=== PATIENT | male | born 1985 | race Caucasian/White ===

== ENCOUNTER 2016-10-06 18:39 | Inpatient (IN) | payer MEDICARE, OTHER ==
--- NOTE | ~2016-10-06 | PA ---
Unit #: [id number] #: [id number] Patient: FABIANA MIRAMONTES [id number] [facility] [address] [place] [address] [id number] MR#: [id number] NAME: FABIANA MIRAMONTES. ROOM: P201 Age: 30 Sex: M Admission Date: 10/06/2016 : 1985 Date of Assessment: 10/07/2016 Attending Physician: Clay Young M.D. Admitting Physician: Clay Young M.D. Primary Care Physician: Primary Care Physician No PSYCHIATRIC ASSESSMENT IDENTYFING INFORMATION The patient is a 30-year-old white male well known to this physician from seemingly enumerable previous admission to this facility. He is readmitted voicing positive suicidal ideation and auditory hallucinations also claiming that he is abusing methamphetamine and benzodiazepines. CHIEF COMPLAINT I have been using man. INFORMANT The patient, reliability is poor. HISTORY OF PRESENT ILLNESS The patient is a 30-year-old white male last discharged from this facility earlier this month. He was scheduled to go and live with his mother but apparently was not allowed to return to that domicile and began using shortly thereafter. He is now residing at a local half-house but continues to report abusive and intervenous methamphetamine as well as illicitly obtained benzodiazepines. When seen today the patient seems to be in moderate physical distress and seems dysphoric. He is continuing to endorse positive suicidal ideation without specific plan. He is not currently reporting any psychotic symptoms and does not appear to be responding to internal stimuli. For more complete history of present illness please refer to previous dictated notes. PAST PSYCHIATRIC HISTORY Reviewed no changes. PAST MEDICAL HISTORY Reviewed no changes. MEDICATIONS None at this time. ALLERGIES None reported. FAMILY HISTORY Reviewed no changes. SOCIAL HISTORY Reviewed no changes. Unit #: [id number] #: [id number] Patient: FABIANA MIRAMONTES MENTAL STATUS EXAMINATION At this time reveals the patient to be a morbidly obese disheveled white male appearing his stated age. He appears to be in moderate physical distress at the time of examination. He is awake, alert, and oriented in all spheres. His mood is dysphoric. His affect is blunted. Speech is generally relevant and coherent. There are no gross deficits in memory or cognition noted. Intelligence is judged to be in the low average range based on fund of knowledge. The patient is cooperative throughout the interview. He is continued to endorse positive suicidal ideation. He denies homicidal ideation. He denies any psychotic symptoms. His judgment and insight appear at baseline. ASSETS AND LIABILITIES ASSETS: To be assessed. LIABILITIES: Profound sociopathy, lack of investment in treatment (1)___ versus homelessness. ADMITTING DIAGNOSES 1. Dysthymic disorder. 2. Methamphetamine use disorder. 3. Sedative hypnotic use disorder. 4. Antisocial personality disorder. 5. Morbid obesity. PSYCHIATRIC PLAN/TREATMENT GOALS The patient remains hospitalized for safety and stabilization. We will watch for any signs of immensely feeling withdrawal and suicide precautions remain in place. Suicide precautions of likewise has been ordered. ESTIMATED LENGTH OF STAY Five to seven days with followup to take place through the auspices of community mental health resources. Dictated by... Clay Young M.D. EVITA/madalyn TD: 10/07/2016 22:58 JOB #: [id number] PSYCHIATRIC ASSESSMENT X Clay Young MD X PSYCHIATRIC ASSESSMENT
--- NOTE | ~2016-10-06 | HP ---
Unit #: [id number] #: [id number] Patient: RALEIGH MIRAMONTES [id number] [place] [address] [id number] MR#: [id number] NAME: RALEIGH MIRAMONTES. ROOM: P201 Age: 30 Sex: M Admission Date: 10/06/2016 : 1985 Attending Physician: Clay Young M.D. Admitting Physician: Clay Young M.D. Primary Care Physician: Primary Care Physician No HISTORY AND PHYSICAL HISTORY OF PRESENT ILLNESS [place] is a 30 year old admitted to [address] [place] [address] reporting auditory hallucinations. He has had numerous admissions to this facility. PAST MEDICAL HISTORY 1. History of malingering. 2. Long history of polysubstance abuse to include opioids, methamphetamine, alcohol, and spice. 3. Hepatitis C. 4. History of withdrawal seizures. PAST SURGICAL HISTORY Oral. ALLERGIES Penicillin, tramadol, Ketoralac. SOCIAL HISTORY Smokes one pack per day. Has a history of heavy alcohol use and poly-illicit substance abuse. FAMILY HISTORY Medically noncontributory. REVIEW OF SYSTEMS He does not answer questions appropriately. There are no reports of nausea, vomiting, or diarrhea. He has had no cough or increased temperature. CURRENT MEDICATIONS 1. Lorazepam 2 mg q. 4 hours p.r.n. 2. Milk of Magnesia p.r.n. 3. Maalox p.r.n. 4. Tylenol p.r.n. PHYSICAL EXAMINATION GENERAL: Alert, obese. No apparent distress. VITAL SIGNS: Blood pressure 120/72, heart rate 80, respirations 16, and temperature 98.6. WEIGHT: 212. HEIGHT: 6 feet 0 inches. SKIN: Warm and dry without rash or lesion. HEENT: Normocephalic. TMs not viewed. Oral and nasal passages clear. Conjunctivae clear. PERRLA. EOMs intact. Unit #: [id number] #: [id number] Patient: RALEIGH MIRAMONTES NECK: Supple without lymphadenopathy or thyromegaly. HEART: Regular rate and rhythm without murmur. LUNGS: Clear. ABDOMEN: Soft, nontender. : Not done. EXTREMITIES: No evidence of cyanosis, clubbing or edema. Moves all without focal deficit. NEUROLOGICAL: Grossly within normal limits. Cranial Nerves: II: Visual mascorro are intact. III, IV AND : Extraocular movements are intact. Pupils are equal, round and reactive to light. V: Facial sensation is grossly normal. VII: Facial movements and expression are normal. VIII: Auditory acuity grossly intact. IX, X: Uvula is midline. Phonation is normal. XI: Patient shrugs shoulders and turns head normally. XII: Tongue protrudes in the midline. Sensory and Motor Function: Sensory and motor sensation is grossly normal. Motor: moves all extremities well. Coordination: Gait is normal. Deep Tendon Reflexes: Intact. IMPRESSION Psychiatric admission. RECOMMENDATIONS PSYCHIATRIC: Per psychiatrist. MEDICAL: I see no contraindication to participate in this facility's activities. MEDICAL PROGNOSIS Good. MEDICAL CONDITION Stable. Dictated by... Mony Leslie P.A.-C. for Elizabeth Mendoza/juan TD: 10/07/2016 11:05 JOB #: [id number] HISTORY AND PHYSICAL X Mony Leslie X HISTORY AND PHYSICAL
--- NOTE | ~2016-10-06 | PN ---
Unit #: [id number] #: [id number] Patient: FABIANA MIRAMONTES [id number] [facility] [address] [place] [address] [id number] I MR#: [id number] NAME: FABIANA MIRAMONTES ROOM: P201 Age: 30 Sex: M Admission Date: 10/06/2016 : 1985 Attending Physician: Clay Young M.D. Admitting Physician: Clay Young M.D. Primary Care Physician: Primary Care Physician La DOMINIQUE PROGRESS NOTES DATE 10/08/2016 DISCUSSION The patient is abed snoring loudly today. Multiple attempts to arouse him are unsuccessful. His detox continues uneventfully. Dictated by... Elizabeth Macdonald TD: 10/08/2016 14:36 JOB #: [id number] TRIP PROGRESS NOTES X Clay Young MD X PROGRESS NOTE
--- NOTE | ~2016-10-06 | DS ---
Unit #: [id number] #: [id number] Patient: FABIANA MIRAMONTES [id number] [facility] [address] [place] [address] [id number] I MR#: [id number] NAME: FABIANA MIRAMONTES. ROOM: P201 Age: 30 Sex: M Admission Date: 10/06/2016 : 1985 Discharge Date: 10/09/2016 Attending Physician: Clay Young M.D. Primary Care Physician: Primary Care Physician No DISCHARGE SUMMARY REASON FOR ADMISSION The patient is a 30-year-old white male, well known to this physician from multiple previous admissions to this facility. He is admitted complaining of suicidal ideation once again, and abuse of methamphetamine and heroin. HOSPITAL COURSE The patient was admitted to the [facility] unit and placed on routine detoxification protocol for opioids. He exhibited little in the way of signs or symptoms of opioid withdrawal leading there to be some question as to the veracity of his claims of opioid abuse. Whatever the case, the patient remained seclusive to room with virtually no participation whatsoever within the therapeutic milieu as has been his pattern throughout most, if not all, of his hospitalizations at this facility. By 10/09/2016, he requested discharge and it was so ordered. FINAL DIAGNOSES Dysthymic disorder; alcohol use disorder by history; cocaine use disorder by history; sedative hypnotic use by history; opioid use disorder; methamphetamine use disorder; antisocial personality disorder; morbid obesity. DISPOSITION ON DISCHARGE No psychotropic medications are prescribed at the time of discharge given the patient's complete inability to maintain sobriety for any significant period of time. FOLLOWUP The patient will follow up through the auspices of [facility] mental health chemical dependency treatment resources. PROGNOSIS His prognosis is considered guarded. Dictated by... Clay Young M.D. CB/valariel TD: 10/10/2016 01:37 JOB #: [id number] Unit #: [id number] #: [id number] Patient: FABIANA MIRAMONTES DISCHARGE SUMMARY X Clay Young MD X DISCHARGE SUMMARY
[~2016-10-06 18:39] MED LIST: ADDERALL XR 3030 M2 PO; AMBIEN PO; AMOXICILLIN PO; AMOXICILLIN500 M1 PO; AUGMENTIN PO; BACTRIM DS TABL1 TA1 PO; BACTRIM DS TABL1 TAB PO; DARVOCET-N 1001 TAB PO; DEPAKOTE; DEPAKOTE PO; DICLOFENAC PO; DOLOBID500 MG PO; GENOPTIC5 ML OP; IBUPROFEN PO; KEFLEX PO; KEFLEX500 MG PO; KETOPROFEN PO; KLONOPIN1 MG PO; NAPROSYN500 MG PO; NEURONTIN; NEURONTIN PO; NO MEDICATIONS; PENICILLIN; PENICILLIN PO; PERCOCET; SUBOXONE 8 MG-1 EACH SL; TYLENOL #3 PO; ULTRAM PO; VIVANSE; VOLTAREN75 MG PO; WELLBUTRIN PO; WELLBUTRIN SR PO; ZYVOX600 MG PO
== END 2016-10-09 15:00 | DRG 881 ==
LOC: P2S 18:39
DX: F34.1 Dysthymic disorder (principal); E66.01 Morbid (severe) obesity due to excess calories; F10.10 Alcohol abuse, uncomplicated; F11.10 Opioid abuse, uncomplicated; F15.10 Other stimulant abuse, uncomplicated; F60.2 Antisocial personality disorder; F17.210 Nicotine dependence, cigarettes, uncomplicated; Z88.0 Allergy status to penicillin

== ENCOUNTER 2016-10-28 15:00 | Inpatient (IN) | payer MEDICARE, OTHER ==
--- NOTE | ~2016-10-28 | DS ---
Unit #: [id number] #: [id number] Patient: FABIANA MIRAMONTES [id number] [place] [address] [id number] I MR#: [id number] NAME: FABIANA MIRAMONTES. ROOM: [facility] Age: 31 Sex: M Admission Date: 10/28/2016 : 1985 Discharge Date: 10/30/2016 Attending Physician: Clay Young M.D. Primary Care Physician: Primary Care Physician No DISCHARGE SUMMARY REASON FOR ADMISSION The patient is a 31-year-old white male, admitted after he had presented to this facility claiming to be suicidal. HOSPITAL COURSE The patient was admitted to the [facility] unit and placed on suicide precautions. He was placed on routine detoxification protocol for alcohol and was restarted on previously prescribed Neurontin, Celexa, and Risperdal at previously prescribed doses per his report. On the morning of 10/30/2016, the patient requested initiation of a stimulant complaining that his medications were making him "too tired." When this physician recommended that reduction in his Neurontin dose would be a more sensible adjustment to his complaints of sedation or switch to all h.s. dosing of Risperdal, the patient came indignant and demanded discharge. It was explained to the patient that given his substance abuse history that the prescription of psychostimulant medication would be patently absurd. As per his request, discharge was ordered. FINAL DIAGNOSES Dysthymic disorder, antisocial personality disorder, opioid use disorder, alcohol use disorder, methamphetamine use disorder, morbid obesity. DISPOSITION ON DISCHARGE The patient is discharged on no psychotropic or other medications. A discussion of the risks of untreated alcohol withdrawal are discussed at length with the patient including the risk of seizures, DTs, and . The patient is discharged against medical advice. Dictated by... Clay Young M.D. CB/ivory TD: 10/31/2016 01:41 JOB #: [id number] Unit #: [id number] #: [id number] Patient: FABIANA MIRAMONTES DISCHARGE SUMMARY Page 1 of 1 X Clay Young MD X DISCHARGE SUMMARY
--- NOTE | ~2016-10-28 | PA ---
Unit #: [id number] #: [id number] Patient: FABIANA MIRAMONTES [id number] [facility] [address] [place] [address] [id number] I MR#: [id number] NAME: FABIANA MIRAMONTES. ROOM: P252 Age: 31 Sex: M Admission Date: 10/28/2016 : 1985 Date of Assessment: 10/29/2016 Attending Physician: Clay Young M.D. Admitting Physician: Clay Young M.D. Primary Care Physician: Primary Care Physician No PSYCHIATRIC ASSESSMENT IDENTIFYING INFORMATION The patient is a 31-year-old single white male well known to this physician from multiple previous admissions to this facility. He is readmitted after he had presented to this facility complaining of suicidal ideation. CHIEF COMPLAINT None given. INFORMANT Patient, reliability fair. HISTORY OF PRESENT ILLNESS The patient is a 31-year-old single white male brought to this facility after he had been intoxicated at the [facility] and had urinated in their lobby. The patient reports that he was having suicidal ideation. He had claimed that he had not used alcohol in months, a statement which is somewhat laughable given the patient's multiple previous admissions to this facility under similar circumstances. When seen today, the patient is reporting positive suicidal ideation. He states that he had been doing reasonably well on his prescribed medications, but after leaving this facility apparently went straight to the [facility] and was there for several days prior to being discharged on 10/23/2016. The patient claims that he is living in a sober living facility but has also claimed to be living with his mother. His stories as are generally the case, are conflicting and inconsistent. The patient states that while at the [facility], he was restarted on Neurontin and started on Celexa and Risperdal. He reports that these medications were effective for him. He denies abuse of psychoactive substances apart from alcohol. For more complete history of present illness, please refer to previously dictated notes. PAST PSYCHIATRIC HISTORY Reviewed, no changes. PAST MEDICAL HISTORY Reviewed, no changes. MEDICATIONS Celexa, Risperdal, and Neurontin. ALLERGIES Ketorolac, Tramadol, Ultram. Unit #: [id number] #: [id number] Patient: FABIANA MIRAMONTES FAMILY HISTORY Reviewed, no changes. SOCIAL HISTORY Reviewed, no changes. MENTAL STATUS EXAMINATION Examination at this time reveals the patient to be a disheveled obese white male appearing older than her stated age. He is in no apparent physical distress at the time of the examination. He is awake, alert, and oriented in all spheres. His mood is calm, his affect blunted. Speech is generally well-coherent. There are no gross deficits in memory or cognition noted. Intelligence is judged to be in the low average range based on fund of knowledge. The patient is generally cooperative throughout the interview. He is currently endorsing positive suicidal ideation. He denies homicidal ideation. He denies any psychotic symptoms. His judgment and insight appear to be somewhat impaired. ASSETS AND LIABILITIES The patient's assets are to be assessed. Liabilities: Lack of resources. DIAGNOSTIC IMPRESSION 1. Alcohol use disorder. 2. Opioid use disorder by history. 3. Methamphetamine use disorder by history. 4. Dysthymic disorder. 5. Antisocial personality disorder. 6. Morbid obesity. 7. Hepatitis C. TREATMENT PLAN The patient remains hospitalized for safety and stabilization. Routine detoxification for tobacco and alcohol has been initiated, and suicide precautions are in place. The patient will be restarted on Neurontin, Celexa, and Risperdal. At this point, given his claims that he has done all these medications, we will seek old records from the [facility] to ascertain his response to these medications there. ESTIMATED LENGTH OF STAY 3 to 5 days. The followup will take place through the auspices of community mental health resources. Dictated by... Clay Young M.D. EVITA/juan TD: 10/29/2016 13:17 JOB #: [id number] Unit #: [id number] #: [id number] Patient: FABIANA MIRAMONTES PSYCHIATRIC ASSESSMENT Page 1 of 1 X Clay Young MD PSYCHIATRIC ASSESSMENT
--- NOTE | ~2016-10-28 | HP ---
Unit #: [id number] #: [id number] Patient: RALEIGH MIRAMONTES [id number] [facility] [address] [place] [address] [id number] I MR#: [id number] NAME: RALEIGH MIRAMONTES ROOM: P252 Age: 31 Sex: M Admission Date: 10/28/2016 : 1985 Attending Physician: Clay Young M.D. Admitting Physician: Clay Young M.D. Primary Care Physician: Primary Care Physician No HISTORY AND PHYSICAL HISTORY OF PRESENT ILLNESS [place] is a 31 year old admitted to [facility] reporting auditory hallucinations. He was discharged from this facility after treatment for the same. The patient was seen and H and P dated 10/07/2016 was reviewed. This is current. No changes. Please see H and P dated 10/07/2016. Dictated by... Mony Leslie P.A.-C. for Elizabeth Mendoza/madalyn TD: 10/28/2016 23:18 JOB #: [id number] HISTORY AND PHYSICAL Page 1 of 1 X Mony Leslie HISTORY AND PHYSICAL
[2016-10-29 09:36] LABS: BASOPHIL# 0.1 X10e3 (0-0.3); BASOPHIL% 1.1 % (0-2.5); EOSINOPHIL# 0.3 X10e3 (0-0.7); EOSINOPHIL% 3.9 % (0.0-7.0); HEMATOCRIT 45.4 % (38.0-50.0); LYMPHOCYTE# 2.4 X10e3 (1.0-3.5); MEAN CELL VOLUME 89.3 FL (83-96); MEAN CORPUSCULAR HEMOGLOBIN 29.6 PG (28-34); MEAN CORPUSCULAR HGB CONC 33.1 g/dL (30-36); MEAN PLATELET VOLUME 10.9 FL (6.5-11.5); MONOCYTE# 0.9 X10e3 (0-1.0); MONOCYTE% 11.2 % (3.0-12.0); NEUTROPHIL# 4.6 X10e3 (1.5-7.1); NEUTROPHIL% 54.8 % (40-75); PLATELET COUNT 123 X10e3 (140-420); RED BLOOD COUNT 5.08 X10e (3.90-5.60); RED CELL DISTRIBUTION WIDTH 14.3 % (11.0-15.5); WHITE BLOOD COUNT 8.4 X10e3 (4.0-10.5)
[2016-10-29 09:37] LABS: DIFF IND NO
[2016-10-29 09:53] LABS: THYROID STIMULATING HORMONE 0.55 uIU/ml (0.34-5.60)
[2016-10-29 10:00] LABS: FREE THYROXIN (T4) 0.8 ng/dL (0.58-1.64)
[2016-10-29 10:06] LABS: ALBUMIN SERUM 3.5 g/dL (3.5-5.0); ALKALINE PHOSPHATASE 68 U/L (32-92); ALT (SGPT) 90 U/L (10-40); AST (SGOT) 48 U/L (10-42); BILIRUBIN,TOTAL 0.7 mg/dL (0.2-2.0); BLOOD UREA NITROGEN 11 mg/dL (9-23); BUN/CREATININE RATIO 13.75; CALCIUM SERUM 8.8 mg/dL (8.4-10.2); CARBON DIOXIDE 27 mmol/L (22-31); CHLORIDE 105 mmol/L (100-111); CREATININE SERUM 0.8 mg/dL (0.6-1.4); GLOM FILT RATE Estimated ABOVE60 mL/min (>60); GLUCOSE FASTING 98 mg/dL (70-110); POTASSIUM 4.3 mmol/L (3.5-5.1); PROTEIN TOTAL SERUM 6.4 g/dL (6.0-8.3); SODIUM 137 mmol/L (135-145)
[2016-10-30 09:59] LABS: URINE APPEARANCE CLOUDY; URINE BILIRUBIN NEG (NEG); URINE BLOOD NEG (NEG); URINE COLOR DK YELLOW; URINE GLUCOSE NEG (NEG); URINE KETONE NEG (NEG); URINE LEUKOCYTE ESTERASE NEG (NEG); URINE NITRATE NEG (NEG); URINE PH 8.5 (5-8); URINE PROTEIN NEG (NEG); URINE SPECIFIC GRAVITY 1.023 (1.003-1.035)
[2016-10-30 10:50] LABS: AMPHETAMINE NEG (NEG); BARBITURATES NEG (NEG); BENZODIAZEPINES NEG (NEG); COCAINE NEG (NEG); MARIJUANA NEG (NEG); OPIATES NEG (NEG); TRICYCLIC ANTIDEPRESSANTS NEG (NEG); U METHADONE NEG (NEG)
== END 2016-10-30 14:45 | disposition left against medical advice (07) | DRG 894 ==
LOC: P2L 15:00
PROVIDERS: Specialist
PROC: HZ2ZZZZ Detoxification Services for Substance Abuse Treatment (ICD-10-PCS; principal; 2016-10-28)
DX: F10.20 Alcohol dependence, uncomplicated (principal); E66.01 Morbid (severe) obesity due to excess calories; F11.90 Opioid use, unspecified, uncomplicated; F15.90 Other stimulant use, unspecified, uncomplicated; F34.1 Dysthymic disorder; F60.2 Antisocial personality disorder; B19.20 Unspecified viral hepatitis C without hepatic coma; Z68.32 Body mass index [BMI] 32.0-32.9, adult; Y90.4 Blood alcohol level of 80-99 mg/100 ml
CPT/HCPCS: 80053; 80307; 81003; 84439; 84443; 85025; 86592

== ENCOUNTER 2016-11-06 10:27 | Inpatient (IN) | payer MEDICARE, OTHER ==
--- NOTE | ~2016-11-06 | PN ---
Unit #: [id number] #: [id number] Patient: FABIANA MIRAMONTES [id number] [facility] [address] [place] [address] [id number] I MR#: [id number] NAME: FABIANA MIRAMONTES. ROOM: 16 Age: 31 Sex: M Admission Date: 11/06/2016 : 1985 Attending Physician: Clay Young M.D. Admitting Physician: Clay Young M.D. Primary Care Physician: Primary Care Physician La DOMINIQUE PROGRESS NOTES DATE 11/08/2016 DISCUSSION The patient has been transferred to the [address] [place] [address] and is now on room lockout precautions after he had claimed to be having increasing of command auditory hallucinations telling him to harm himself. Upon learning of his room lockout, the patient is demanding discharge from the hospital stating to this physician, "I ain't going to kill myself" and referring to this physician by a number of obscene epithets. The patient complains that the Haldol is causing him to "lockup" though he exhibits absolutely no signs or symptoms of extrapyramidal symptoms. More to the point, he exhibits no response to any internal stimuli leading this physician as well as several members of the staff to question the veracity of his claims of auditory hallucinations. Whatever the case, given the threats made earlier today, he will remain on suicide precautions and room lockout for at least another 24 hours. I have discontinued Haldol given the patient's complaints of extrapyramidal symptoms and will restart Risperdal which he had taken previously. Dictated by... Clay Young M.D. CB/beverly TD: 11/08/2016 16:03 JOB #: [id number] TRIP PROGRESS NOTES Page 1 of 1 X Clay Young MD X PROGRESS NOTE
--- NOTE | ~2016-11-06 | PN ---
Unit #: [id number] #: [id number] Patient: FABIANA MIRAMONTES [id number] [facility] [address] [place] [address] [id number] I MR#: [id number] NAME: FABIANA MIRAMONTES ROOM: 71 Age: 31 Sex: M Admission Date: 11/06/2016 : 1985 Attending Physician: Clay Young M.D. Admitting Physician: Clay Young M.D. Primary Care Physician: Primary Care Physician La DOMINIQUE PROGRESS NOTES DATE 11/07/2016 DISCUSSION Not surprisingly the patient is noted to be abed snoring loudly today and has not been attending groups or any therapeutic activities on the unit. This is typical behavior from the patient from multiple previous hospitalizations. I have gently but firmly confronted the patient regarding my expectation that he increase his participation within the therapeutic milieu. He continues to endorse positive suicidal ideation. Dictated by... Clya Young M.D. CB/beverly TD: 11/07/2016 15:36 JOB #: [id number] TRIP PROGRESS NOTES Page 1 of 1 X Clay Young MD PROGRESS NOTE
--- NOTE | ~2016-11-06 | DS ---
Unit #: [id number] #: [id number] Patient: FABIANA MIRAMONTES [id number] [facility] [address] [place] [address] [id number] MR#: [id number] NAME: FABIANA MIRAMONTES. ROOM: [facility] Age: 31 Sex: M Admission Date: 11/06/2016 : 1985 Discharge Date: 11/09/2016 Attending Physician: Clay Young M.D. DISCHARGE SUMMARY REASON FOR ADMISSION The patient is a 33-year-old white male, admitted yet again and was claiming to be experiencing auditory hallucinations and suicidal thinking. HOSPITAL COURSE [facility] No detoxification protocol was ordered for the patient as he had only been out of the hospital for couple of days. The patient was angry regarding this. He persisted in his claims of auditory hallucinations and on 11/06/2016, he was begun on Haldol 5 mg t.i.d. daily. On 11/08/2016, the patient became angry with staff and was transferred to the [address] [place] [address] unit and placed on room lockout precautions. He demanded discharge on that date, but having earlier in the day claimed to be having suicidal ideation. Discharge was not ordered on that date, the patient claims that the Haldol was closing and "locked up." This medication was therefore discontinued and the patient restarted on Risperdal 2 mg t.i.d. On 11/09/2016, the patient denied suicidal ideation and requested discharge and it was so ordered. FINAL DIAGNOSES Dysthymic disorder, alcohol use disorder, antisocial personality disorder, morbid obesity. DISPOSITION ON DISCHARGE The patient is discharged on the following medications: Risperdal 2 mg t.i.d. for psychosis. DISCHARGE INSTRUCTIONS No dietary or physical restrictions were placed upon the patient at time of discharge. FOLLOWUP Followup will take place through the auspices of community mental health and chemical dependency resources. PROGNOSIS The patient's prognosis range guarded. Dictated by... Clay Young M.D. CB/valariel Unit #: [id number] #: [id number] Patient: FABIANA MIRAMONTES TD: 11/09/2016 16:45 JOB #: [id number] DISCHARGE SUMMARY Page 1 of 1 X Clay Young MD DISCHARGE SUMMARY
--- NOTE | ~2016-11-06 | HP ---
Unit #: [id number] #: [id number] Patient: RALEIGH MIRAMONTES [id number] [facility] [address] [place] [address] [id number] I MR#: [id number] NAME: RALEIGH MIRAMONTES ROOM: P171 Age: 31 Sex: M Admission Date: 11/06/2016 : 1985 Attending Physician: Clay Young M.D. Admitting Physician: Clay Young M.D. Primary Care Physician: Primary Care Physician No HISTORY AND PHYSICAL HISTORY OF PRESENT ILLNESS [place] is a 31 year old, admitted to [facility] after reporting auditory hallucinations. He was just discharged from this facility. The patient was seen and history and physical, dated 10/07/2016 was reviewed. It is current. No changes. Please see history and physical, dated 10/07/2016. Dictated by... Mony Leslie P.A.-C. for Elizabeth Mendoza/yamini TD: 11/07/2016 07:55 JOB #: [id number] HISTORY AND PHYSICAL Page 1 of 1 X Mony Leslie HISTORY AND PHYSICAL
--- NOTE | ~2016-11-06 | PA ---
Unit #: [id number] #: [id number] Patient: FABIANA MIRAMONTES [id number] [place] [address] [id number] MR#: [id number] NAME: FABIANA MIRAMONTES. ROOM: [facility] Age: 31 Sex: M Admission Date: 11/06/2016 : 1985 Date of Assessment: 11/06/2016 Attending Physician: Clay Young M.D. Admitting Physician: Clay Young M.D. Primary Care Physician: Primary Care Physician No PSYCHIATRIC ASSESSMENT IDENTIFYING INFORMATION The patient is a 31-year-old white male admitted after he had presented to [facility] claiming to be experiencing auditory hallucinations. INFORMANT(S) Patient. RELIABILITY Poor. CHIEF COMPLAINT None given. HISTORY OF PRESENT ILLNESS The patient is a 31-year-old white male well-known to this facility from multiple previous admissions the last of which ended only about a week ago. The patient is readmitted after he had presented to [facility] claiming to be hearing voices and conversing with Deandre Saeed. The patient denies having used substances since his discharge from the hospital but his drug screen is in fact positive for amphetamines. When seen today, the patient reports that he continues to experience auditory and visual hallucinations as well as feelings of derealization and he is reporting positive suicidal ideation. For a more complete history of present illness, please refer to previous dictated notes. PAST PSYCHIATRIC HISTORY Reviewed, no changes. FAMILY HISTORY Reviewed, no changes. SOCIAL HISTORY Reviewed, no changes. MEDICAL HISTORY Reviewed, no changes. MEDICATION HISTORY 1. Celexa. 2. Risperdal. 3. Neurontin. Unit #: [id number] #: [id number] Patient: FABIANA MIRAMONTES The patient is inconsistently compliant with all these medications. ALLERGIES Tramadol, ketorolac. MENTAL STATUS EXAM At this time, reveals the patient to be a morbidly obese disheveled white male appearing his stated age. He is slightly groggy but arouses without difficulty. He is oriented in all spheres. His mood is mildly dysphoric. His affect constricted. Speech is generally relevant and coherent. There are no gross deficits in memory or cognition noted. Intelligence is judged to be in the low average range based on fund of knowledge. The patient is generally cooperative during interview. He continues to endorse positive suicidal ideation. He denies homicidal ideation. He reports positive auditory hallucinations and symptoms of derealization. He also claims to be experiencing positive visual hallucinations. His judgement and insight appear to be at baseline. No signs of substance withdrawal are noted. ASSETS AND LIABILITIES Patient's assets to be assessed. Liabilities, profound sociopathy, ongoing substance use, lack of investment in treatment. ADMITTING DIAGNOSES 1. Dysthymic disorder. 2. Methamphetamine use disorder. 3. Alcohol use disorder. 4. Antisocial personality disorder. 5. Hepatitis C by history. PSYCHIATRIC PLAN/TREATMENT GOALS The patient remains hospitalized for safety and stabilization. I will begin the patient on Haldol 5 mg t.i.d. given his complaints of visual hallucinations but will discontinue Celexa, Risperdal and Neurontin given the patient's inability to maintain sobriety for any significant period of time. DISCHARGE PLANNING Follow up to take place through the auspices of community mental health resources. ESTIMATED LENGTH OF STAY Three to five days Dictated by... Clay Young M.D. EVITA/beverly TD: 11/06/2016 15:56 JOB #: [id number] Unit #: [id number] #: [id number] Patient: FABIANA MIRAMONTES PSYCHIATRIC ASSESSMENT Page 1 of 1 X Clay Young MD PSYCHIATRIC ASSESSMENT
[2016-11-07 10:03] LABS: ALBUMIN SERUM 3.9 g/dL (3.5-5.0); BILIRUBIN,TOTAL 0.6 mg/dL (0.2-2.0); BUN/CREATININE RATIO 24.28; CALCIUM SERUM 8.9 mg/dL (8.4-10.2); CREATININE SERUM 0.7 mg/dL (0.6-1.4); GLOM FILT RATE Estimated 126.7 mL/min (>60); POTASSIUM 4.3 mmol/L (3.5-5.1); PROTEIN TOTAL SERUM 6.8 g/dL (6.0-8.3)
[2016-11-07 10:07] LABS: THYROID STIMULATING HORMONE 0.87 uIU/ml (0.34-5.60)
[2016-11-07 10:14] LABS: FREE THYROXIN (T4) 0.92 ng/dL (0.58-1.64)
[2016-11-07 10:31] LABS: BASOPHIL# 0.1 X10e3 (0-0.3); BASOPHIL% 1.2 % (0-2.5); EOSINOPHIL# 0.3 X10e3 (0-0.7); EOSINOPHIL% 3.6 % (0.0-7.0); HEMATOCRIT 48.3 % (38.0-50.0); HEMOGLOBIN 16.1 gm/dL (13.0-16.0); LYMPHOCYTE# 2.8 X10e3 (1.0-3.5); LYMPHOCYTE% 30.4 % (17.0-45.0); MEAN CELL VOLUME 89.1 FL (83-96); MEAN CORPUSCULAR HEMOGLOBIN 29.7 PG (28-34); MEAN CORPUSCULAR HGB CONC 33.3 g/dL (30-36); MEAN PLATELET VOLUME 11.3 FL (6.5-11.5); MONOCYTE# 1.1 X10e3 (0-1.0); MONOCYTE% 11.5 % (3.0-12.0); NEUTROPHIL# 4.9 X10e3 (1.5-7.1); NEUTROPHIL% 53.3 % (40-75); RED BLOOD COUNT 5.42 X10e (3.90-5.60); RED CELL DISTRIBUTION WIDTH 14.4 % (11.0-15.5); WHITE BLOOD COUNT 9.3 X10e3 (4.0-10.5)
[2016-11-07 11:37] LABS: DIFF IND YES; PLATELET COUNT 145 X10e3 (140-420)
[2016-11-07 11:37] LABS: URINE APPEARANCE CLOUDY; URINE BILIRUBIN NEG (NEG); URINE BLOOD NEG (NEG); URINE COLOR YELLOW; URINE GLUCOSE NORM (NORM); URINE KETONE 2+ (NEG); URINE LEUKOCYTE ESTERASE NEG (NEG); URINE NITRATE NEG (NEG); URINE PH 6.5 (5-8); URINE PROTEIN NEG (NEG); URINE UROBILINOGEN NORM (NORM)
[2016-11-07 11:41] LABS: PLATELET ESTIMATE NORMAL (NORMAL); RBC NORMAL YES
== END 2016-11-09 13:42 | disposition home or self-care (01) | DRG 881 ==
LOC: P1E 10:27 → POF 11:44 → P1E 11:47 → P1S 11-08 11:41
PROVIDERS: Specialist
DX: F34.1 Dysthymic disorder (principal); F15.20 Other stimulant dependence, uncomplicated; R45.851 Suicidal ideations; F10.20 Alcohol dependence, uncomplicated; F60.2 Antisocial personality disorder; B19.20 Unspecified viral hepatitis C without hepatic coma
CPT/HCPCS: 80053; 80307; 81003; 84439; 84443; 85025; 99285; G0480

== ENCOUNTER 2016-12-08 02:36 | Inpatient (IN) | payer MEDICARE, OTHER ==
--- NOTE | ~2016-12-08 | PA ---
Unit #: [id number] #: [id number] Patient: FABIANA MIRAMONTES [id number] [facility] [address] [place] [address] [id number] MR#: [id number] NAME: FABIANA MIRAMONTES. ROOM: P202 Age: 31 Sex: M Admission Date: 12/08/2016 : 1985 Date of Assessment: 12/08/2016 Attending Physician: Clay Young M.D. Admitting Physician: Clay Young M.D. Primary Care Physician: Primary Care Physician No PSYCHIATRIC ASSESSMENT IDENTIFYING INFORMATION The patient is a 31-year-old white male admitted in transfer from [facility] where he presented voicing suicidal ideation and increased alcohol use. INFORMANT(S) Chart, patient cannot be aroused for interview. CHIEF COMPLAINT None given. HISTORY OF PRESENT ILLNESS The patient is a 31-year-old white male well-known to this facility from multiple previous admissions to the facility the last of which ended on 11/09/2016. The patient had presented to [facility] stating that he had been expelled from the [facility] in which he had been residing secondary to ongoing abuse of alcohol. The patient reporting that he has been drinking about a fifth of hard liquor on a daily basis. The patient claims he has been hearing voices telling him to "lay on the train tracks." For more complete history of present illness, please refer to previous dictated notes. PAST PSYCHIATRIC HISTORY Reviewed, no changes. PAST MEDICAL HISTORY Reviewed no changes. MEDICATIONS None at this time. ALLERGIES Tramadol, ketorolac FAMILY HISTORY Reviewed, no changes. SOCIAL HISTORY Reviewed, no changes. MENTAL STATUS EXAM At this time, reveals the patient to be an obese disheveled soundly Unit #: [id number] #: [id number] Patient: FABIANA MIRAMONTES sleeping white male who in spite of multiple efforts to do so will not arouse for interview. ASSETS AND LIABILITIES ASSETS: To be assessed. LIABILITIES: Ongoing substance use, lack of resources. DIAGNOSTIC IMPRESSION 1. Dysthymic disorder. 2. Alcohol use disorder. 3. Antisocial personality disorder. PSYCHIATRIC PLAN/TREATMENT GOALS The patient remains hospitalized for safety and stabilization. A routine detoxification protocol for alcohol has been initiated. Suicidal precautions have been placed. ESTIMATED LENGTH OF STAY Three to five days Dictated by... Elizabeth Macdonald TD: 12/09/2016 00:03 JOB #: [id number] PSYCHIATRIC ASSESSMENT Page 1 of 1 X Clay Young MD X PSYCHIATRIC ASSESSMENT
--- NOTE | ~2016-12-08 | HP ---
Unit #: [id number] #: [id number] Patient: RALEIGH MIRAMONTES [id number] [facility] [address] [place] [address] [id number] I MR#: [id number] NAME: RALEIGH MIRAMONTES. ROOM: P202 Age: 31 Sex: M Admission Date: 12/08/2016 : 1985 Attending Physician: Clay Young M.D. Admitting Physician: Clay Young M.D. Primary Care Physician: Primary Care Physician No HISTORY AND PHYSICAL HISTORY OF PRESENT ILLNESS Raleigh is a 31 year old admitted to [address] [place] [address]. He has had numerous admissions to this facility. He was recently discharged from this facility. PAST MEDICAL HISTORY 1. History of malingering. 2. Long history of polysubstance abuse to include opioids, methamphetamine, alcohol and spice. 3. Hepatitis C. 4. History of withdrawal seizures. PAST SURGICAL HISTORY Oral. ALLERGIES Penicillin, tramadol, ketorolac. SOCIAL HISTORY Smokes one pack per day, has a history of alcohol use. He continues to drink up to a fifth a day and has a history of poly illicit substance abuse. FAMILY HISTORY Medically noncontributory. REVIEW OF SYSTEMS CONSTITUTIONAL: No fever or chills. HEENT: Denies any sore throat, ear pain or runny nose. CARDIOVASCULAR: Denies chest pain, irregular heart rhythm or palpitations. CHEST: Denies shortness of breath or cough. No hemoptysis. GASTROINTESTINAL: Denies nausea, vomiting, diarrhea or chronic constipation. ENDOCRINE: Denies history of increased thirst or urination. No recent significant weight loss or gain. GENITOURINARY: Denies dysuria, frequency, or hematuria. SKIN: Denies any rashes. HEMATOLOGIC: Denies history of increased bleeding or bruising. MUSCULOSKELETAL: Denies any hot, swollen joints. No generalized muscle pain. NEUROLOGIC: Denies problems with vision or speech. No frequent, severe headaches. No numbness, tingling or weakness in any extremities. Denies Unit #: [id number] #: [id number] Patient: RALEIGH MIRAMONTES loss of bladder or bowel control. CURRENT MEDICATIONS Detox protocol PHYSICAL EXAMINATION GENERAL: Alert, obese, in no apparent distress. VITAL SIGNS: Blood pressure 126/58, heart rate 80, respirations 16, temperature 98.6. WEIGHT: 241 pounds. HEIGHT: 6'0". SKIN: Warm and dry without rash or lesion. HEENT: Normocephalic. TMs not viewed. Oral and nasal passages clear. Conjunctivae clear. Pupils equal, round and reactive to light and accommodation. Extraocular movements intact. NECK: Supple without lymphadenopathy or thyromegaly. HEART: Regular rate and rhythm without murmur. LUNGS: Clear. ABDOMEN: Soft, nontender. : Not done. EXTREMITIES: No evidence of cyanosis, clubbing or edema. Moves all extremities without focal deficit. NEUROLOGICAL: Grossly within normal limits. Cranial Nerves: II: Visual mascorro are intact. III, IV AND : Extraocular movements are intact. Pupils are equal, round and reactive to light. V: Facial sensation is grossly normal. VII: Facial movements and expression are normal. VIII: Auditory acuity grossly intact. IX, X: Uvula is midline. Phonation is normal. XI: Patient shrugs shoulders and turns head normally. XII: Tongue protrudes in the midline. Sensory and Motor Function: Sensory and motor sensation is grossly normal. Motor: moves all extremities well. Coordination: Gait is normal. Deep Tendon Reflexes: Intact. IMPRESSION Psychiatric admission RECOMMENDATIONS PSYCHIATRIC: Per psychiatrist. MEDICAL: I see no contraindications to participating in facility's activities. MEDICAL PROGNOSIS Good. MEDICAL CONDITION Stable. Dictated by... Mony Leslie P.A.-C. for Elizabeth Mendoza/madalyn Unit #: [id number] #: [id number] Patient: RALEIGH MIRAMONTES TD: 12/09/2016 02:25 JOB #: [id number] HISTORY AND PHYSICAL Page 1 of 1 X Mony Leslie HISTORY AND PHYSICAL
--- NOTE | ~2016-12-08 | PN ---
Unit #: [id number] #: [id number] Patient: FABIANA MIRAMONTES [id number] [facility] [address] [place] [address] [id number] I MR#: [id number] NAME: FABIANA MIRAMONTES ROOM: P202 Age: 31 Sex: M Admission Date: 12/08/2016 : 1985 Attending Physician: Clay Young M.D. Admitting Physician: Clay Young M.D. Primary Care Physician: Primary Care Physician La DOMINIQUE PROGRESS NOTES DATE 12/09/2016 DISCUSSION The patient remains abed and continues to complain of significant symptoms of alcohol withdrawal. His failure to participate in programming is again discussed at some length during today's interview. Dictated by... Clay Young M.D. CB/beverly TD: 12/09/2016 15:06 JOB #: [id number] TRIP KAMARA NOTES Page 1 of 1 X Clay Young MD PROGRESS NOTE
--- NOTE | ~2016-12-08 | DS ---
Unit #: [id number] #: [id number] Patient: FABIANA MIRAMONTES [id number] [facility] [address] [place] [address] [id number] I MR#: [id number] NAME: FABIANA MIRAMONTES. ROOM: P202 Age: 31 Sex: M Admission Date: 12/08/2016 : 1985 Discharge Date: 12/10/2016 Attending Physician: Clay Young M.D. Primary Care Physician: Primary Care Physician No DISCHARGE SUMMARY REASON FOR ADMISSION The patient is a 31-year-old single, white male, admitted to the [address] [place] [address] unit for alcohol detox. HOSPITAL COURSE The patient was admitted to the [address] [place] [address] and placed on routine detoxification protocol for alcohol. His stay in the hospital was a brief and uneventful one. He participated to no significant degree within the therapeutic milieu. Of note this time, the patient was not on his normal med seeking self and not that particularly matter as this physician has no intention of reinitiatiating psychotropic medications. This patient given one his seeming inability to maintain sobriety for more than a day and to his aunt to the feeling of this physician that the patient does not have a treatable axis I diagnosis apart from his alcohol dependence. It is the feeling of this physician that the patient's primary pathology is related to his profound sociopathy. FINAL DIAGNOSES Alcohol use disorder; dysthymic disorder; and antisocial personality disorder. DISPOSITION ON DISCHARGE The patient is discharged on no psychotropic or other medications. FOLLOWUP Followup will take place through the auspices of community mental health resources. PROGNOSIS Remains guarded. Dictated by... Clay Young M.D. EVITA/ivory TD: 12/10/2016 14:35 JOB #: [id number] Unit #: [id number] #: [id number] Patient: FABIANA MIRAMONTES DISCHARGE SUMMARY Page 1 of 1 X Clay Young MD X DISCHARGE SUMMARY
[2016-12-09 09:41] LABS: URINE APPEARANCE CLEAR; URINE BILIRUBIN NEG (NEG); URINE BLOOD NEG (NEG); URINE COLOR DK YELLOW; URINE GLUCOSE NEG (NEG); URINE KETONE NEG (NEG); URINE LEUKOCYTE ESTERASE NEG (NEG); URINE NITRATE NEG (NEG); URINE PH 7.5 (5-8); URINE PROTEIN TRACE (NEG); URINE SPECIFIC GRAVITY 1.028 (1.003-1.035)
[2016-12-09 09:46] LABS: BASOPHIL# 0.1 X10e3 (0-0.3); BASOPHIL% 1.3 % (0-2.5); DIFF IND NO; EOSINOPHIL# 0.2 X10e3 (0-0.7); EOSINOPHIL% 2.6 % (0.0-7.0); HEMOGLOBIN 16.4 gm/dL (13.0-16.0); LYMPHOCYTE# 2.5 X10e3 (1.0-3.5); LYMPHOCYTE% 26.4 % (17.0-45.0); MEAN CELL VOLUME 88.9 FL (83-96); MEAN CORPUSCULAR HEMOGLOBIN 29.8 PG (28-34); MEAN CORPUSCULAR HGB CONC 33.5 g/dL (30-36); MEAN PLATELET VOLUME 10.3 FL (6.5-11.5); MONOCYTE# 0.9 X10e3 (0-1.0); NEUTROPHIL# 5.8 X10e3 (1.5-7.1); NEUTROPHIL% 60.7 % (40-75); PLATELET COUNT 140 X10e3 (140-420); RED BLOOD COUNT 5.51 X10e (3.90-5.60); RED CELL DISTRIBUTION WIDTH 14.3 % (11.0-15.5); WHITE BLOOD COUNT 9.5 X10e3 (4.0-10.5)
[2016-12-09 09:58] LABS: BILIRUBIN,TOTAL 0.7 mg/dL (0.2-2.0); CALCIUM SERUM 9.1 mg/dL (8.4-10.2); CREATININE SERUM 0.8 mg/dL (0.6-1.4); GLOM FILT RATE Estimated 119.9 mL/min (>60); POTASSIUM 4.5 mmol/L (3.5-5.1); PROTEIN TOTAL SERUM 7.1 g/dL (6.0-8.3)
== END 2016-12-10 14:07 | disposition home or self-care (01) | DRG 897 ==
LOC: P2S 02:36
PROVIDERS: Specialist
PROC: HZ2ZZZZ Detoxification Services for Substance Abuse Treatment (ICD-10-PCS; principal; 2016-12-08)
DX: F10.10 Alcohol abuse, uncomplicated (principal); F34.1 Dysthymic disorder; F60.2 Antisocial personality disorder; Z88.0 Allergy status to penicillin; F17.210 Nicotine dependence, cigarettes, uncomplicated
CPT/HCPCS: 80053; 81003; 85025; 86592

== ENCOUNTER 2016-12-17 03:00 | Inpatient (IN) | payer MEDICARE, OTHER ==
--- NOTE | ~2016-12-17 | PA ---
Unit #: [id number] #: [id number] Patient: FABIANA MIRAMONTES [id number] [facility] [address] [place] [address] [id number] I MR#: [id number] NAME: FABIANA MIRAMONTES. ROOM: [facility] Age: 31 Sex: M Admission Date: 12/17/2016 : 1985 Date of Assessment: 12/17/2016 Attending Physician: Clay Young M.D. Admitting Physician: Clay Young M.D. Primary Care Physician: Primary Care Physician No PSYCHIATRIC ASSESSMENT IDENTIFYING INFORMATION The patient is a 31-year-old single white male admitted to this facility after having been brought by the crisis invention team. CHIEF COMPLAINT None given INFORMANT(S) Chart, the patient could not aroused for interview. HISTORY OF PRESENT ILLNESS The patient is a 31-year-old white male brought to this facility by [facility] after he had reported that he was hearing voices telling to lay on the train tracks to end his life. The patient was discharged from this facility approximately one week ago and began drinking almost immediately. The patient when seen today is sleeping soundly cannot be aroused for the interview. For more complete history of present illness please refer to previous dictated notes. PAST PSYCHIATRIC HISTORY Reviewed no changes. PAST MEDICAL HISTORY Reviewed no changes. MEDICATIONS None. ALLERGIES Ketorolac, tramadol FAMILY HISTORY Reviewed no changes. SOCIAL HISTORY Reviewed no changes. MENTAL STATUS EXAM At this time reveals the patient to be a disheveled obese white male appearing his stated age. He is snoring loudly and multiple attempts to arouse him are at last unsuccessful. Unit #: [id number] #: [id number] Patient: FABIANA MIRAMONTES ASSETS AND LIABILITIES ASSETS: To be assessed. LIABILITIES: Lack of resources. DIAGNOSTIC IMPRESSION Alcohol use disorder, dysthymic disorder, antisocial personality disorder. PSYCHIATRIC PLAN/TREATMENT GOALS The patient remains hospitalized for safety and stabilization. A routine detoxification protocol for alcohol has been initiated and suicidal precautions are in place. The patient will participate in appropriate srivastava and milieu activities. At this point this physician has made the determination given the patient's inability to maintain sobriety for even the slightest period of time re-initiation of any psychotropic medications is unwarranted at this point but I will discuss possible initiation of Antabuse with the patient once he is able to converse. Dictated by... Elizabeth Macdonald TD: 12/17/2016 20:38 JOB #: [id number] PSYCHIATRIC ASSESSMENT Page 1 of 1 X Clay Young MD X PSYCHIATRIC ASSESSMENT
--- NOTE | ~2016-12-17 | PN ---
Unit #: [id number] #: [id number] Patient: FABIANA MIRAMONTES [id number] [facility] [address] [place] [address] [id number] I MR#: [id number] NAME: FABIANA MIRAMONTES ROOM: [facility] Age: 31 Sex: M Admission Date: 12/17/2016 : 1985 Attending Physician: Clay Young M.D. Admitting Physician: Clay Young M.D. Primary Care Physician: Primary Care Physician La DOMINIQUE PROGRESS NOTES DATE 12/18/2016 DISCUSSION The patient is abed today but arouses without difficulty. He is agreeable to trial of Antabuse after discussion of the risks and benefits of the medication including the need for avoidance of nonbeverage alcohol. We will begin his Antabuse trial tomorrow. Dictated by... Clay Young M.D. CB/beverly TD: 12/18/2016 15:18 JOB #: [id number] TRIP PROGRESS NOTES Page 1 of 1 X Clay Young MD PROGRESS NOTE
--- NOTE | ~2016-12-17 | DS ---
Unit #: [id number] #: [id number] Patient: FABIANA MIRAMONTES [id number] [facility] [address] [place] [address] [id number] I MR#: [id number] NAME: FABIANA MIRAMONTES. ROOM: [facility] Age: 31 Sex: M Admission Date: 12/17/2016 : 1985 Discharge Date: 12/19/2016 Attending Physician: Clay Young M.D. Primary Care Physician: Primary Care Physician No DISCHARGE SUMMARY REASON FOR ADMISSION The patient is a 31-year-old white male, admitted to the [address] [place] [address] unit once again complaining of suicidal ideation and increased alcohol use. HOSPITAL COURSE The patient was admitted to the [address] [place] [address] and placed on suicide precautions. Routine detoxification protocol for alcohol was ordered. The patient's participation in the therapeutic milieu as always left much to be desired. The patient was offered a trial of Antabuse on 12/18/2016, but refused his ordered dose on 12/19/2016 and on that date, he requested discharge from the hospital and refused to consider any outpatient followup or continuation of Antabuse. Discharge was ordered. FINAL DIAGNOSES Alcohol use disorder; dysthymic disorder; antisocial personality disorder. Obesity. DISPOSITION ON DISCHARGE The patient is discharged on no psychotropic or other medications. FOLLOWUP Followup will take place through the auspices of community mental health resources. PROGNOSIS The patient's prognosis considered poor. Dictated by... Clay Young M.D. EVITA/ivory TD: 12/19/2016 15:02 JOB #: [id number] Unit #: [id number] #: [id number] Patient: FABIANA MIRAMONTES DISCHARGE SUMMARY Page 1 of 1 X Clay Young MD X DISCHARGE SUMMARY
--- NOTE | ~2016-12-17 | HP ---
Unit #: [id number] #: [id number] Patient: RALEIGH MIRAMONTES [id number] [facility] [address] [place] [address] [id number] MR#: [id number] NAME: RALEIGH MIRAMONTES ROOM: [facility] Age: 31 Sex: M Admission Date: 12/17/2016 : 1985 Attending Physician: Clay Yonug M.D. Admitting Physician: Clay Young M.D. Primary Care Physician: Primary Care Physician No HISTORY AND PHYSICAL NOTE Raleigh is a 31 year old admitted to [address] [place] [address] wanting to hurt himself. He was just discharged from this facility after treatment for the same. He has had numerous admission to this facility. The patient was seen and H and P dated 12/08/2016 was reviewed. No changes. Please see H and P dated 12/08/2016. Dictated by... Mony Leslie P.A.-C. for Elizabeth Mendoza/madalyn TD: 12/18/2016 00:56 JOB #: [id number] HISTORY AND PHYSICAL Page 1 of 1 X Mony Leslie HISTORY AND PHYSICAL
== END 2016-12-19 18:21 | disposition home or self-care (01) | DRG 897 ==
LOC: P1S 06:29
DX: F10.20 Alcohol dependence, uncomplicated (principal); F34.1 Dysthymic disorder; F60.2 Antisocial personality disorder
CPT/HCPCS: 86592

== ENCOUNTER 2016-12-28 11:00 | Inpatient (IN) | payer MEDICARE, OTHER ==
--- NOTE | ~2016-12-28 | DS ---
Unit #: [id number] #: [id number] Patient: FABIANA MIRAMONTES [id number] [facility] [address] [place] [address] [id number] I MR#: [id number] NAME: FABIANA MIRAMONTES. ROOM: P207 Age: 31 Sex: M Admission Date: 12/28/2016 : 1985 Discharge Date: 12/31/2016 Attending Physician: Clay Young M.D. Primary Care Physician: Primary Care Physician No DISCHARGE SUMMARY REASON FOR ADMISSION The patient is a 31-year-old single white male, admitted to the [address] [place] [address] unit complaining of suicidal ideation and increasing alcohol use. HOSPITAL COURSE The patient was admitted to the [address] [place] [address] unit and placed on routine detoxification protocol for alcohol. Suicide precautions were put in place as is generally the case during his hospitalizations. The patient remained at bed with virtually no participation within the therapeutic milieu apart from leaving his room for meals. No medications were re-initiated given the patient's inability to maintain sobriety for any significant period of time. By 12/31/2016, the patient requested discharge. He was at that time exhibiting no signs or symptoms of withdrawal and was not felt to meet criteria for further hospitalization. Discharge was ordered. FINAL DIAGNOSES Alcohol use disorder, dysthymic disorder, antisocial personality disorder, and obesity. DISPOSITION ON DISCHARGE The patient is discharged on no psychotropic or other medications. FOLLOWUP Followup will take place through the auspices of community mental health resources. PROGNOSIS His prognosis is considered guarded. Dictated by... Clay Young M.D. CB/ivory TD: 12/31/2016 19:27 JOB #: [id number] Unit #: [id number] #: [id number] Patient: FABIANA MIRAMONTES DISCHARGE SUMMARY Page 1 of 1 X Clay Young MD X DISCHARGE SUMMARY
--- NOTE | ~2016-12-28 | PN ---
Unit #: [id number] #: [id number] Patient: FABIANA MIRAMONTES [id number] [facility] [address] [place] [address] [id number] I MR#: [id number] NAME: FABIANA MIRAMONTES ROOM: P207 Age: 31 Sex: M Admission Date: 12/28/2016 : 1985 Attending Physician: Clay Young M.D. Admitting Physician: Clay Young M.D. Primary Care Physician: Primary Care Physician La DOMINIQUE PROGRESS NOTES DATE 12/30/2016 DISCUSSION The patient is abed sleeping soundly. His most recent CIWA score was a 9 which necessitated a dose of Ativan. Dictated by... Clay Young M.D. CB/beverly TD: 12/30/2016 15:46 JOB #: [id number] TRIP PROGRESS NOTES Page 1 of 1 X Clay Young MD X PROGRESS NOTE
--- NOTE | ~2016-12-28 | HP ---
Unit #: [id number] #: [id number] Patient: FABIANA MIRAMONTES [id number] [facility] [address] [place] [address] [id number] I MR#: [id number] NAME: FABIANA MIRAMONTES ROOM: P207 Age: 31 Sex: M Admission Date: 12/28/2016 : 1985 Attending Physician: Clay Young M.D. Admitting Physician: Clay Young M.D. Primary Care Physician: Primary Care Physician No HISTORY AND PHYSICAL HISTORY OF PRESENT ILLNESS Fabiana is a 31-year-old male admitted on 12/28/2016 for depression and suicidal ideations and auditory hallucinations. He has multiple previous admissions for the same. He was recently admitted on 12/08/2016. I reviewed the history and physical from that admission and there are no changes. Dictated by..Cathie Joe/madalyn TD: 12/29/2016 04:07 JOB #: [id number] HISTORY AND PHYSICAL Page 1 of 1 X NAVDEEP PLATA APRN HISTORY AND PHYSICAL
--- NOTE | ~2016-12-28 | PA ---
Unit #: [id number] #: [id number] Patient: FABIANA MIRAMONTES [id number] [place] [address] [id number] I MR#: [id number] NAME: FABIANA MIRAMONTES. ROOM: P207 Age: 31 Sex: M Admission Date: 12/28/2016 : 1985 Date of Assessment: 12/29/2016 Attending Physician: Clay Young M.D. Admitting Physician: Clay Young M.D. Primary Care Physician: La Primary Care Physician PSYCHIATRIC ASSESSMENT IDENTIFYING INFORMATION The patient is a 31-year-old white male, well known to this physician. He is readmitted after presenting to this facility voicing positive suicidal ideation and claiming to be abusing alcohol and meth. INFORMANT(S) Chart. Patient could not be roused for interview. CHIEF COMPLAINT None given. HISTORY OF PRESENT ILLNESS The patient is a 31-year-old white male, well known to this physician, who was last discharged from this facility on 12/19/2016. He returns, stating that he is abusing alcohol and methamphetamine and is having suicidal thoughts. The patient is sleeping soundly today and multiple attempts to rouse him are unsuccessful, so further history cannot be provided at this point. PAST PSYCHIATRIC HISTORY Reviewed and no changes. FAMILY HISTORY Reviewed and no changes. SOCIAL HISTORY Reviewed and no changes. MEDICAL HISTORY Reviewed and no changes. MEDICATION HISTORY None. ALLERGIES Tramadol, ketorolac. MENTAL STATUS EXAM At this time, the patient is an obese disheveled white male who is sleeping soundly and cannot be aroused for interview in spite of multiple attempts to do so. ASSETS AND LIABILITIES Unit #: [id number] #: [id number] Patient: FABIANA MIRAMONTES Assets to be assessed. Liabilities, ongoing substance use, sociopathy, poor investment in treatment. ADMITTING DIAGNOSES 1. Alcohol use disorder. 2. Methamphetamine use disorder per patient history. 3. Dysthymic disorder. 4. Antisocial personality disorder. 5. Obesity. PSYCHIATRIC PLAN/TREATMENT GOALS The patient remains hospitalized for safety and stabilization. Routine detox treatment protocol for alcohol has been initiated. The patient will participate in appropriate srivastava activities. ESTIMATED LENGTH OF STAY Three to five days. Dictated by... Clay Young M.D. CB/gz TD: 12/31/2016 13:21 JOB #: [id number] PSYCHIATRIC ASSESSMENT Page 1 of 1 X Clay Young MD PSYCHIATRIC ASSESSMENT
[2016-12-29 09:49] LABS: BASOPHIL# 0.1 X10e3 (0-0.3); BASOPHIL% 1.3 % (0-2.5); EOSINOPHIL# 0.3 X10e3 (0-0.7); EOSINOPHIL% 3.4 % (0.0-7.0); HEMATOCRIT 46.8 % (38.0-50.0); HEMOGLOBIN 15.5 gm/dL (13.0-16.0); LYMPHOCYTE# 2.1 X10e3 (1.0-3.5); LYMPHOCYTE% 27.3 % (17.0-45.0); MEAN CELL VOLUME 88.7 FL (83-96); MEAN CORPUSCULAR HEMOGLOBIN 29.4 PG (28-34); MEAN CORPUSCULAR HGB CONC 33.1 g/dL (30-36); MEAN PLATELET VOLUME 10.6 FL (6.5-11.5); MONOCYTE# 0.9 X10e3 (0-1.0); MONOCYTE% 11.7 % (3.0-12.0); NEUTROPHIL# 4.4 X10e3 (1.5-7.1); NEUTROPHIL% 56.3 % (40-75); RED BLOOD COUNT 5.28 X10e (3.90-5.60); RED CELL DISTRIBUTION WIDTH 13.6 % (11.0-15.5); WHITE BLOOD COUNT 7.8 X10e3 (4.0-10.5)
[2016-12-29 10:05] LABS: PLATELET COUNT 126 X10e3 (140-420)
[2016-12-29 10:07] LABS: DIFF IND YES
[2016-12-29 10:09] LABS: ALBUMIN SERUM 3.6 g/dL (3.5-5.0); BILIRUBIN,TOTAL 0.7 mg/dL (0.2-2.0); BUN/CREATININE RATIO 18.57; CALCIUM SERUM 8.9 mg/dL (8.4-10.2); CREATININE SERUM 0.7 mg/dL (0.6-1.4); GLOM FILT RATE Estimated 126.7 mL/min (>60); PLATELET ESTIMATE DECREASED (NORMAL); POTASSIUM 4.3 mmol/L (3.5-5.1); PROTEIN TOTAL SERUM 6.6 g/dL (6.0-8.3); RBC NORMAL YES
== END 2016-12-31 13:58 | disposition home or self-care (01) | DRG 897 ==
LOC: P2S 13:05
PROVIDERS: Specialist
PROC: HZ2ZZZZ Detoxification Services for Substance Abuse Treatment (ICD-10-PCS; principal; 2016-12-28)
DX: F10.10 Alcohol abuse, uncomplicated (principal); R45.851 Suicidal ideations; F15.10 Other stimulant abuse, uncomplicated; F34.1 Dysthymic disorder; F60.2 Antisocial personality disorder; E66.9 Obesity, unspecified; Z88.8 Allergy status to other drugs, medicaments and biological substances; Z68.37 Body mass index [BMI] 37.0-37.9, adult
CPT/HCPCS: 80053; 85025; 86592

== ENCOUNTER 2017-03-18 03:00 | Inpatient (IN) | payer MEDICARE ==
[~2017-03-18] VITALS: Ht 170.2 cm; Wt 108.9 kg
--- NOTE | ~2017-03-18 | DS ---
Unit #: [id number] #: [id number] Patient: FABIANA MIRAMONTES [id number] [facility] [address] [place] [address] [id number] MR#: [id number] NAME: FABIANA MIRAMONTES. ROOM: [facility] Age: 31 Sex: M Admission Date: 03/18/2017 : 1985 Discharge Date: 03/19/2017 Attending Physician: Clay Young M.D. Primary Care Physician: Primary Care Physician No DISCHARGE SUMMARY REASON FOR ADMISSION The patient is a 31-year-old white male, admitted voicing suicidal ideation. DIAGNOSTIC STUDIES Laboratory data included a negative urine drug screen. HOSPITAL COURSE The patient was admitted to the [address] [place] [address] unit and restarted on previously prescribed Celexa and Abilify combination medications which he stated had been started as an outpatient which had helped him with regards to his mood symptoms. He tolerated reinitiation of medications without complaint and by 03/19 was requesting discharge. It was so ordered. DISCHARGE DIAGNOSES [place] I Bipolar disorder, unspecified, depressed phase. Alcohol use disorder by history. Methamphetamine use disorder by history. Opioid use disorder by history. [place] II Antisocial personality disorder. [place] III Morbid obesity. [place] IV [place] V DISPOSITION ON DISCHARGE He was discharged on the following medications: 1. Celexa 20 mg daily for depression 2. Abilify 15 mg daily for mood stabilization PROGNOSIS The patient's prognosis is considered fair. DIET AND ACTIVITY No dietary or physical restrictions were placed on the patient at the time of discharge. Follow up will be take place through the auspices of community mental health resources. Unit #: [id number] #: [id number] Patient: FABIANA MIRAMONTES Dictated by... Clay Young M.D. CB/yamini TD: 03/20/2017 07:29 JOB #: [id number] DISCHARGE SUMMARY Page 1 of 1 X Clay Young MD X DISCHARGE SUMMARY
--- NOTE | ~2017-03-18 | PA ---
Unit #: [id number] #: [id number] Patient: FABIANA MIRAMONTES [id number] [facility] [address] [place] [address] [id number] I MR#: [id number] NAME: FABIANA MIRAMONTES. ROOM: [facility] Age: 31 Sex: M Admission Date: 03/18/2017 : 1985 Date of Assessment: 03/18/2017 Attending Physician: Clay Young M.D. Admitting Physician: Clay Young M.D. Primary Care Physician: Primary Care Physician No PSYCHIATRIC ASSESSMENT IDENTIFYING INFORMATION The patient is a 31-year-old white male, admitted to the [address] [place] [address] unit after presenting to [facility], voicing positive suicidal ideation. INFORMANT(S) Patient, reliability is good. CHIEF COMPLAINT "I wanted to get back on my medications." HISTORY OF PRESENT ILLNESS The patient is a 31-year-old white male, well known to this physician from multiple previous admissions the last of which was on December 31 of this year. The patient has been living at "[facility]" and states that he has been maintaining sobriety. His drug screen was in fact negative. The patient, today, is requesting reinitiation of Abilify and Celexa, medications which he states were prescribed through the auspices of [facility] and were effective for him. He was reporting positive suicidal ideation but is a bit more hopeful today with the thought of initiation of medications. He is much more polite during today's interview than is generally the case. We have placed the patient on a routine detoxification protocol given his history. For a more complete history of present illness please refer to previously dictated notes. PAST PSYCHIATRIC HISTORY Reviewed and no changes. PAST MEDICAL HISTORY Reviewed and no changes. MEDICATIONS 1. Celexa 2. Abilify ALLERGIES Penicillin, tramadol, Ketoralac. FAMILY HISTORY Reviewed and no changes. Unit #: [id number] #: [id number] Patient: FABIANA MIRAMONTES SOCIAL HISTORY Reviewed and no changes. MENTAL STATUS EXAM At this time, reveals the patient to be a morbidly obese white male, appearing his stated age. He has no apparent physical distress at the time of the examination. He is awake, alert, and oriented in all spheres. His mood is mildly dysphoric. His affect congruent. Speech is generally relevant and coherent. There are no gross deficits to memory or cognition noted. Intelligence is judged to be in the average range based on fund of knowledge. The patient is cooperative throughout the interview. He is currently endorsing positive suicidal ideation. He denies homicidal ideation. He denies any psychotic symptoms. His judgment and insight appear to be intact. ASSETS Motivation for change. LIABILITIES Lack of resources, chronicity of illness, poor compliance with treatment and antisocial traits vs disorder. DIAGNOSTIC IMPRESSION [place] I: Bipolar disorder, depressed phase. Alcohol use disorder by history. Methamphetamine use disorder by history. Opioid use disorder by history. [place] II: Antisocial personality disorder. [place] III: Morbid obesity. TREATMENT PLAN The patient remains hospitalized for safety and stabilization. We will, as per the patient's request, restart Celexa and Abilify, and suicide precautions are in place. We will watch for any signs of alcohol withdrawal but at this point, the patient does not appear to be exhibiting any such symptoms. ESTIMATED LENGTH OF STAY IN THE HOSPITAL [id number] days. Dictated by... Clay Young M.D. EVITA/yamini TD: 03/18/2017 12:33 JOB #: [id number] Unit #: [id number] #: [id number] Patient: KULWINDERFABIANA Jabari PSYCHIATRIC ASSESSMENT Page 1 of 1 X Clay Young MD PSYCHIATRIC ASSESSMENT
--- NOTE | ~2017-03-18 | HP ---
Unit #: [id number] #: [id number] Patient: RALEIGH MIRAMONTES [id number] [facility] [address] [place] [address] [id number] MR#: [id number] NAME: RALEIGH MIRAMONTES. ROOM: [facility] Age: 31 Sex: M Admission Date: 03/18/2017 : 1985 Attending Physician: Clay Young M.D. Admitting Physician: Clay Young M.D. Primary Care Physician: Primary Care Physician No HISTORY AND PHYSICAL HISTORY OF PRESENT ILLNESS [place] is a 31 year old admitted to [address] [place] [address] with depression and verbalizing wanting to hurt himself. He has had numerous admissions to this facility for the same. PAST MEDICAL HISTORY 1. History of malingering. 2. Long history of polysubstance abuse to include opioids, methamphetamine, alcohol and spice. 3. Hepatitis C. 4. History of withdrawal seizures. PAST SURGICAL HISTORY Oral. ALLERGIES Penicillin, tramadol, ketorolac. SOCIAL HISTORY Smokes one pack per day. Has a history of alcohol abuse. Denies anything currently. He also has a history of poly illicit substance abuse but denies anything recently. FAMILY HISTORY Medically noncontributory. REVIEW OF SYSTEMS CONSTITUTIONAL: No fever or chills. HEENT: Denies any sore throat, ear pain or runny nose. CARDIOVASCULAR: Denies chest pain, irregular heart rhythm or palpitations. CHEST: Denies shortness of breath or cough. No hemoptysis. GASTROINTESTINAL: Denies nausea, vomiting, diarrhea or chronic constipation. ENDOCRINE: Denies history of increased thirst or urination. No recent significant weight loss or gain. GENITOURINARY: Denies dysuria, frequency, or hematuria. SKIN: Denies any rashes. HEMATOLOGIC: Denies history of increased bleeding or bruising. MUSCULOSKELETAL: Denies any hot, swollen joints. No generalized muscle pain. NEUROLOGIC: Denies problems with vision or speech. No frequent, severe headaches. No numbness, tingling or weakness in any extremities. Denies Unit #: [id number] #: [id number] Patient: RALEIGH MIRAMONTES loss of bladder or bowel control. CURRENT MEDICATIONS 1. Abilify 15 mg q day 2. Celexa 20 mg q day 3. Milk of Magnesia p.r.n. 4. Maalox p.r.n. 5. Tylenol p.r.n. 6. Nicotine patch 14 mg q day PHYSICAL EXAMINATION GENERAL: Alert, well-nourished, in no apparent distress. VITAL SIGNS: Blood pressure 115/70, heart rate 90, respirations 16, temperature 98.6. WEIGHT: 240 HEIGHT: 5 foot 7 inches. SKIN: Warm and dry without rash or lesion. HEENT: Normocephalic. TMs not viewed. Oral and nasal passages clear. Conjunctivae clear. Pupils equal, round and reactive to light and accommodation. Extraocular movements intact. NECK: Supple without lymphadenopathy or thyromegaly. HEART: Regular rate and rhythm without murmur. LUNGS: Clear. ABDOMEN: Soft, nontender. : Not done. EXTREMITIES: No evidence of cyanosis, clubbing or edema. Moves all extremities without focal deficit. NEUROLOGICAL: Grossly within normal limits. Cranial Nerves: II: Visual mascorro are intact. III, IV AND : Extraocular movements are intact. Pupils are equal, round and reactive to light. V: Facial sensation is grossly normal. VII: Facial movements and expression are normal. VIII: Auditory acuity grossly intact. IX, X: Uvula is midline. Phonation is normal. XI: Patient shrugs shoulders and turns head normally. XII: Tongue protrudes in the midline. Sensory and Motor Function: Sensory and motor sensation is grossly normal. Motor: moves all extremities well. Coordination: Gait is normal. Deep Tendon Reflexes: Intact. IMPRESSION Psychiatric admission. RECOMMENDATIONS PSYCHIATRIC: Per psychiatrist. MEDICAL: I see no contraindications to participating in facility's activities. MEDICAL PROGNOSIS Good. MEDICAL CONDITION Stable. Unit #: [id number] #: [id number] Patient: RALIEGH MIRAMONTES Dictated by... Mony Leslie P.A.-C. for Elizabeth Mendoza/madalyn TD: 03/18/2017 20:43 JOB #: [id number] HISTORY AND PHYSICAL Page 1 of 1 X Mony Leslie HISTORY AND PHYSICAL
[2017-03-19 12:40] LABS: URINE APPEARANCE CLEAR; URINE BILIRUBIN NEG (NEG); URINE BLOOD NEG (NEG); URINE COLOR YELLOW; URINE GLUCOSE NEG (NEG); URINE KETONE NEG (NEG); URINE LEUKOCYTE ESTERASE NEG (NEG); URINE NITRATE NEG (NEG); URINE PH 5.5 (5-8); URINE PROTEIN NEG (NEG); URINE SPECIFIC GRAVITY 1.012 (1.003-1.035); URINE UROBILINOGEN 0.2 MG/DL (NEG)
[2017-03-19 12:50] LABS: BASOPHIL# 0.1 X10e3 (0-0.3); BASOPHIL% 0.9 % (0-2.5); EOSINOPHIL# 0.2 X10e3 (0-0.7); EOSINOPHIL% 2.4 % (0.0-7.0); HEMATOCRIT 46.3 % (38.0-50.0); HEMOGLOBIN 15.4 gm/dL (13.0-16.0); LYMPHOCYTE# 1.9 X10e3 (1.0-3.5); LYMPHOCYTE% 23.6 % (17.0-45.0); MEAN CELL VOLUME 89.8 FL (83-96); MEAN CORPUSCULAR HEMOGLOBIN 29.8 PG (28-34); MEAN CORPUSCULAR HGB CONC 33.2 g/dL (30-36); MEAN PLATELET VOLUME 10.5 FL (6.5-11.5); MONOCYTE# 0.8 X10e3 (0-1.0); MONOCYTE% 9.9 % (3.0-12.0); NEUTROPHIL% 63.2 % (40-75); RED BLOOD COUNT 5.16 X10e (3.90-5.60); RED CELL DISTRIBUTION WIDTH 14.4 % (11.0-15.5)
[2017-03-19 12:51] LABS: ALBUMIN SERUM 3.9 g/dL (3.5-5.0); BILIRUBIN,TOTAL 0.9 mg/dL (0.2-2.0); BUN/CREATININE RATIO 17.5; CALCIUM SERUM 9.1 mg/dL (8.4-10.2); CREATININE SERUM 0.8 mg/dL (0.6-1.4); GLOM FILT RATE Estimated 119.9 mL/min (>60); POTASSIUM 4.4 mmol/L (3.5-5.1); PROTEIN TOTAL SERUM 6.9 g/dL (6.0-8.3)
[2017-03-19 13:07] LABS: DIFF IND NO; PLATELET COUNT 155 X10e3 (140-420)
== END 2017-03-19 15:05 | disposition home or self-care (01) | DRG 885 ==
LOC: P2L 06:02
PROVIDERS: Specialist
PROC: HZ2ZZZZ Detoxification Services for Substance Abuse Treatment (ICD-10-PCS; principal; 2017-03-18)
DX: F31.9 Bipolar disorder, unspecified (principal); E66.01 Morbid (severe) obesity due to excess calories; R45.851 Suicidal ideations; F60.2 Antisocial personality disorder; B19.20 Unspecified viral hepatitis C without hepatic coma; Z88.0 Allergy status to penicillin; F17.210 Nicotine dependence, cigarettes, uncomplicated; F10.10 Alcohol abuse, uncomplicated; F11.10 Opioid abuse, uncomplicated; F15.10 Other stimulant abuse, uncomplicated; Z68.37 Body mass index [BMI] 37.0-37.9, adult
CPT/HCPCS: 80053; 81003; 85025